=== PATIENT | male | born 1965 | race Caucasian/White ===

== ENCOUNTER 2021-08-01 22:58 | Observation (INO) | payer OTHER ==
[2021-08-01] MEDS ORDERED: MAG HYDROX/AL HYDROX/SIMETH -MYLANTA- ORAL SUSPENSION PO ONE ×2 (23:45→23:53)
[2021-08-01] MEDS ORDERED: FAMOTIDINE 20 MG TABLET PO ONE (23:45)
[2021-08-01] MEDS ORDERED: ACETAMINOPHEN 325 MG TABLET (FP) PO ONE (23:46)
[2021-08-01] MEDS ORDERED: morphine CARPU-JECT 2 MG/1 ML DISP.SYRIN IVPUSH ONE (23:53)
[2021-08-01] MEDS ORDERED: FAMOTIDINE 20 MG/50 ML IVPB 20 MG/50 ML MG IVPB ONE (23:53)
[2021-08-01] MEDS ORDERED: ACETAMINOPHEN 1000 MG/100 ML BAG IVPB ONE (23:57)
[2021-08-02] MEDS ORDERED: MAG HYDROX/AL HYDROX/SIMETH 30 ML UNIT-DOSE CUP ONE (00:10)
[2021-08-02] MEDS ORDERED: ACETAMINOPHEN INJECTION 100 ML IVPB ONE (00:10)
[2021-08-02] MEDS ORDERED: FAMOTIDINE 20 MG/50 ML IVPB 20 MG/50 ML MG IVPB ONE (00:11)
[2021-08-02 00:29] LABS: BASO % 0.4 % (0-2.0); EOS % 2.4 % (0-4.5); HEMATOCRIT 38.5 % (35.4-49); HEMOGLOBIN 13.3 GM/dL (11.7-16.9); LYMPH % 34.7 % (8-40); MCH 32.2 pg (25.7-33.7); MCHC 34.5 g/dl (32.0-35.9); MEAN CELL VOLUME 93.3 fl (80-96); MEAN PLT VOLUME 9.1 fl (7.5-11.1); MONO % 9.9 % (3.8-10.2); NEUT % 52.6 % (42.8-82.8); PLATELET COUNT 157 10^3/uL (134-434); RBC 4.13 M/mm3 (4.00-5.60); RDW 12.7 % (11.9-15.9); WHITE BLOOD COUNT 7.1 K/mm3 (4.0-10.0)
[2021-08-02 00:38] LABS: INR 1.1 (0.83-1.09); PROTHROMBIN TIME (PATIENT) 12.7 SEC (9.7-13.0)
[2021-08-02 00:41] LABS: ACTIVATED PTT 31.6 SECONDS (25.2-36.5)
[2021-08-02 00:45] LABS: ALBUMIN 3.8 g/dl (3.4-5.0); CALCIUM 8.5 mg/dL (8.5-10.1)
[2021-08-02 00:48] LABS: CREATININE 1.4 mg/dL (0.55-1.3)
[2021-08-02 00:50] LABS: BILIRUBIN,TOTAL 0.9 mg/dL (0.2-1); TOT PROT 7.4 g/dl (6.4-8.2)
[2021-08-02] MEDS ORDERED: LACTATED RINGERS SOLUTION 1,000 ML/1,000 ML INFUS.BAG IV STA (00:52)
[2021-08-02] MEDS ORDERED: ONDANSETRON 4 MG/2 ML VIAL IVPUSH ONE (00:55)
[2021-08-02] MEDS ORDERED: morphine CARPU-JECT 4 MG/1 ML DISP.SYRIN IVPUSH ONE ×2 (00:55→05:18)
[2021-08-02] MEDS ORDERED: morphine SULFATE 4 MG/ML VIAL ONE ×2 (00:56→05:20)
[2021-08-02] MEDS ORDERED: ONDANSETRON 4 MG/2 ML VIAL ONE (00:56)
[2021-08-02] MEDS ORDERED: HYDROCHLOROTHIAZIDE 25 MG TABLET (FP) PO ONE (04:41)
[2021-08-02] MEDS ORDERED: ACETAMINOPHEN 1000 MG/100 ML BAG IVPB ONE (04:48)
[2021-08-02] MEDS ORDERED: HYDROCHLOROTHIAZIDE 25 MG TABLET (FP) ONE (04:48)
[2021-08-02] MEDS ORDERED: ACETAMINOPHEN 1000 MG/100 ML BAG IVPB PRN (05:19)
[2021-08-02 08:44] LABS: URINE APPEARANCE CLEAR; URINE BILIRUBIN NEGATIVE (NEGATIVE); URINE COLOR YELLOW; URINE GLUCOSE (UA) NEGATIVE (NEGATIVE); URINE KETONE NEGATIVE (NEGATIVE); URINE LEUK ESTERASE NEGATIVE (NEGATIVE); URINE NITRITE NEGATIVE (NEGATIVE); URINE PROTEIN NEGATIVE (NEGATIVE); URINE UROBILINOGEN 0.2 mg/dL (0.2-1.0)
[2021-08-02 09:12] LABS: BASO % 0.5 % (0-2.0); HEMATOCRIT 39.3 % (35.4-49); HEMOGLOBIN 13.2 GM/dL (11.7-16.9); LYMPH % 36.9 % (8-40); MCH 31.7 pg (25.7-33.7); MCHC 33.5 g/dl (32.0-35.9); MEAN CELL VOLUME 94.7 fl (80-96); MEAN PLT VOLUME 9.4 fl (7.5-11.1); MONO % 10.7 % (3.8-10.2); NEUT % 49.9 % (42.8-82.8); PLATELET COUNT 161 10^3/uL (134-434); RBC 4.15 M/mm3 (4.00-5.60); RDW 12.8 % (11.9-15.9)
[2021-08-02] MEDS ORDERED: ENOXAPARIN NA (PORCINE) 40 MG/0.4 ML DISP.SYRIN SQ SCH (10:00)
[2021-08-02 10:26] VITALS: BMI 35.3
[2021-08-02] MEDS ORDERED: PROPOFOL 20 ML ONE ×2 (10:41)
[2021-08-02] MEDS ORDERED: SUCCINYLCHOLINE CHLORIDE 200 MG/10 ML SYRINGE ONE (10:41)
[2021-08-02] MEDS ORDERED: MIDAZOLAM HCL 2 MG/2 ML SINGLE DOSE VIAL ONE (10:58)
[2021-08-02] MEDS ORDERED: PHENYLEPHRINE HCL 10 MG/1 ML SINGLE DOSE VIAL ONE (10:59)
[2021-08-02] MEDS ORDERED: ceFAZolin SODIUM 1 GM VIAL IVPB ONE (11:15)
[2021-08-02] MEDS ORDERED: ceFAZolin SODIUM 1 GM VIAL ONE (11:16)
[2021-08-02] MEDS ORDERED: HYDROmorphone HCl 2 MG/ML VIAL ONE (11:23)
[2021-08-02 11:34] LABS: CALCIUM 8.8 mg/dL (8.5-10.1)
[2021-08-02 11:35] LABS: BLOOD UREA NITROGEN 14.4 mg/dL (7-18); MAGNESIUM 2.2 mg/dL (1.8-2.4)
[2021-08-02 11:39] LABS: CREATININE 1.2 mg/dL (0.55-1.3); PHOSPHOROUS 2.8 mg/dL (2.5-4.9)
[2021-08-02] MEDS ORDERED: BUPIVACAINE HCL/PF 0.5% (5MG/ML) 10 ML VIAL IJ ONE (12:45)
[2021-08-02] MEDS ORDERED: NEOSTIGMINE METHYLSULFATE 0.5 MG/ML - 10 ML MDV ONE (12:56)
[2021-08-02] MEDS ORDERED: GLYCOPYRROLATE 0.2 MG/1 ML VIAL ONE (13:20)
[2021-08-02] MEDS ORDERED: FAMOTIDINE 10 MG TABLET PO PRN (13:32)
[2021-08-02] MEDS ORDERED: LACTATED RINGERS SOLUTION 1,000 ML IV SCH (13:45)
[2021-08-02] MEDS: ACETAMINOPHEN 1000 MG/100 ML BAG IVPB PRN ×2 (18:14→22:14)
[2021-08-02] MEDS ORDERED: LISINOPRIL 5 MG TABLET PO SCH ×2 (20:00)
[2021-08-02] MEDS ORDERED: LISINOPRIL 20 MG TABLET PO SCH ×2 (22:00)
[2021-08-03] MEDS ORDERED: oxyCODONE HCL 5 MG TABLET PO PRN
[2021-08-03] MEDS: oxyCODONE HCL 5 MG TABLET PO PRN ×2 (06:47→11:57)
[2021-08-03 09:18] LABS: BASO % 0.1 % (0-2.0); HEMATOCRIT 36.9 % (35.4-49); HEMOGLOBIN 12.8 GM/dL (11.7-16.9); LYMPH % 10.7 % (8-40); MCH 32.2 pg (25.7-33.7); MCHC 34.8 g/dl (32.0-35.9); MEAN CELL VOLUME 92.7 fl (80-96); MEAN PLT VOLUME 9.3 fl (7.5-11.1); MONO % 7.1 % (3.8-10.2); NEUT % 82.1 % (42.8-82.8); PLATELET COUNT 156 10^3/uL (134-434); RBC 3.98 M/mm3 (4.00-5.60); RDW 12.8 % (11.9-15.9); WHITE BLOOD COUNT 8.5 K/mm3 (4.0-10.0)
[2021-08-03 09:54] LABS: ALBUMIN 3.2 g/dl (3.4-5.0); BLOOD UREA NITROGEN 12.5 mg/dL (7-18)
[2021-08-03 09:57] LABS: CREATININE 1.2 mg/dL (0.55-1.3)
[2021-08-03 09:59] LABS: BILIRUBIN,TOTAL 1.4 mg/dL (0.2-1)
[2021-08-03] MEDS ORDERED: ENOXAPARIN NA (PORCINE) 40 MG/0.4 ML DISP.SYRIN SQ SCH (10:00)
[2021-08-03] MEDS ORDERED: HYDROCHLOROTHIAZIDE 12.5 MG CAPSULE (FP) PO SCH ×2 (10:00)
[2021-08-03 10:01] LABS: TOT PROT 6.8 g/dl (6.4-8.2)
[2021-08-03 14:56] VITALS: BP 131/70; PULSE 59; TEMP 98
== END 2021-08-03 15:04 | disposition home or self-care (01) ==
LOC: JER 22:58 → JERBED 08-02 02:34 → J8W 08-02 06:17
PROVIDERS: ADMIT Internal Medicine; ATTEND Internal Medicine
PROC: 3E033NZ Introduction of Analgesics, Hypnotics, Sedatives into Peripheral Vein, Percutaneous Approach (ICD-10-PCS; 2021-08-02)
PROC: 3E023GC Introduction of Other Therapeutic Substance into Muscle, Percutaneous Approach (ICD-10-PCS; 2021-08-02)
PROC: 3E033GC Introduction of Other Therapeutic Substance into Peripheral Vein, Percutaneous Approach (ICD-10-PCS; 2021-08-02)
PROC: 3E0337Z Introduction of Electrolytic and Water Balance Substance into Peripheral Vein, Percutaneous Approach (ICD-10-PCS; 2021-08-02)
PROC: 0FT44ZZ Resection of Gallbladder, Percutaneous Endoscopic Approach (ICD-10-PCS; 2021-08-02)
PROC: 0WUF4JZ Supplement Abdominal Wall with Synthetic Substitute, Percutaneous Endoscopic Approach (ICD-10-PCS; 2021-08-02)
PROC: 0FT44ZZ Resection of Gallbladder, Percutaneous Endoscopic Approach (ICD-10-PCS; 2021-08-02)
PROC: BF12YZZ Fluoroscopy of Gallbladder using Other Contrast (ICD-10-PCS; 2021-08-02)
PROC: 0FT44ZZ Resection of Gallbladder, Percutaneous Endoscopic Approach (ICD-10-PCS; principal; 2021-08-02 10:00)
DX: K80.10 Calculus of gallbladder with chronic cholecystitis without obstruction (principal); I10 Essential (primary) hypertension; R10.30 Lower abdominal pain, unspecified; R73.03 Prediabetes; E66.9 Obesity, unspecified; Z68.35 Body mass index [BMI] 35.0-35.9, adult; Z29.9 Encounter for prophylactic measures, unspecified
CPT/HCPCS: 36415; 74174-TC; 76000-TC-FY; 76705-TC; 80048; 80053; 81003; 82550; 82553; 82570; 83036; 83605; 83690; 83735; 84100; 84156; 84484; 84540; 85025; 85610; 85730; 87086; 88304-TC; 93005; 93010; 94760; 96361; 96365; 96372; 96375; 96376; 99285-25; C9803-CS; G0378; U0003; U0005

== ENCOUNTER 2021-09-01 22:37 | Emergency (ER) | payer OTHER ==
[2021-09-01 22:44] VITALS: BP 142/75; PULSE 92; TEMP 98.6; BMI 27.3
[2021-09-01] MEDS ORDERED: ACETAMINOPHEN 500 MG TABLET (FP) PO ONE (23:14)
[2021-09-01] MEDS ORDERED: CEPHALEXIN MONOHYDRATE 500 MG CAPSULE (UD) PO ONE (23:21)
[2021-09-01] MEDS ORDERED: ACETAMINOPHEN 325 MG TABLET (FP) ONE (23:49)
[2021-09-01] MEDS ORDERED: CEPHALEXIN MONOHYDRATE 500 MG CAPSULE (UD) ONE (23:49)
== END 2021-09-02 00:08 | disposition home or self-care (01) ==
LOC: JER 22:37
DX: L03.115 Cellulitis of right lower limb (principal)
CPT/HCPCS: 73630-TC-RT-FY; 99283-25

== ENCOUNTER 2022-02-01 10:58 | Emergency (ER) | payer OTHER ==
[2022-02-01 11:14] VITALS: BP 124/94; PULSE 62; RESP 17; TEMP 97.9; BMI 26.6
[2022-02-01] MEDS ORDERED: KETOROLAC TROMETHAMINE 30 MG/1 ML VIAL IM ONE (11:47)
[2022-02-01] MEDS ORDERED: METHOCARBAMOL 500 MG TABLET PO ONE (11:47)
[2022-02-01] MEDS ORDERED: KETOROLAC TROMETHAMINE 30 MG/1 ML VIAL ONE (11:48)
[2022-02-01] MEDS ORDERED: METHOCARBAMOL 500 MG TABLET ONE (11:48)
== END 2022-02-01 12:04 | disposition home or self-care (01) ==
LOC: JERFT 10:58
PROC: 3E0233Z Introduction of Anti-inflammatory into Muscle, Percutaneous Approach (ICD-10-PCS; principal; 2022-02-01)
DX: M54.41 Lumbago with sciatica, right side (principal)
CPT/HCPCS: 99284-25

== ENCOUNTER 2022-02-05 07:39 | Emergency (ER) | payer OTHER ==
[2022-02-05 08:05] VITALS: TEMP 97.9; BMI 27.4
[2022-02-05] MEDS ORDERED: ACETAMINOPHEN 1000 MG/100 ML BAG IVPB ONE (08:19)
[2022-02-05] MEDS ORDERED: ACETAMINOPHEN INJECTION 100 ML IVPB ONE (08:25)
[2022-02-05] MEDS ORDERED: KETOROLAC TROMETHAMINE 15 MG/ML VIAL IVPUSH ONE ×2 (08:51→12:50)
[2022-02-05 08:54] VITALS: BP 148/87; PULSE 52; RESP 14
[2022-02-05] MEDS ORDERED: KETOROLAC TROMETHAMINE 15 MG/ML VIAL ONE ×2 (08:54→12:58)
[2022-02-05 09:16] LABS: BASO % 0.3 % (0-2.0); EOS % 2.7 % (0-4.5); HEMATOCRIT 41.2 % (35.4-49); HEMOGLOBIN 13.9 GM/dL (11.7-16.9); LYMPH % 26.5 % (8-40); MCH 31.2 pg (25.7-33.7); MCHC 33.7 g/dl (32.0-35.9); MEAN CELL VOLUME 92.8 fl (80-96); MEAN PLT VOLUME 9.5 fl (7.5-11.1); MONO % 10.3 % (3.8-10.2); NEUT % 60.2 % (42.8-82.8); PLATELET COUNT 142 10^3/uL (134-434); RBC 4.44 M/mm3 (4.00-5.60); RDW 12.8 % (11.9-15.9); WHITE BLOOD COUNT 6.3 K/mm3 (4.0-10.0)
[2022-02-05 09:36] LABS: CALCIUM 9.2 mg/dL (8.5-10.1)
[2022-02-05 09:37] LABS: ALBUMIN 4.1 g/dl (3.4-5.0); BLOOD UREA NITROGEN 21.5 mg/dL (7-18)
[2022-02-05 09:40] LABS: CREATININE 1.2 mg/dL (0.55-1.3)
[2022-02-05 09:41] LABS: BILIRUBIN,TOTAL 1.6 mg/dL (0.2-1); TOT PROT 7.3 g/dl (6.4-8.2)
[2022-02-05 10:06] LABS: URINE APPEARANCE CLEAR; URINE BILIRUBIN NEGATIVE (NEGATIVE); URINE COLOR YELLOW; URINE GLUCOSE (UA) NEGATIVE (NEGATIVE); URINE KETONE NEGATIVE (NEGATIVE); URINE LEUK ESTERASE NEGATIVE (NEGATIVE); URINE NITRITE NEGATIVE (NEGATIVE); URINE PROTEIN NEGATIVE (NEGATIVE)
[2022-02-05 10:28] LABS: INR 1.1 (0.83-1.09); PROTHROMBIN TIME (PATIENT) 12.7 SEC (9.7-13.0)
[2022-02-05] MEDS ORDERED: METHOCARBAMOL 500 MG TABLET PO ONE (11:53)
[2022-02-05] MEDS ORDERED: METHOCARBAMOL 500 MG TABLET ONE (11:55)
[2022-02-05] MEDS ORDERED: LIDOCAINE 5% TOPICAL PATCH TP ONE (12:27)
[2022-02-05] MEDS ORDERED: LIDOCAINE 5% TOPICAL PATCH ONE (12:30)
[2022-02-05] MEDS ORDERED: LIDOCAINE PATCH REMOVAL MC SCH (22:00)
== END 2022-02-05 12:40 | disposition home or self-care (01) ==
LOC: JER 07:39
PROC: 3E033GC Introduction of Other Therapeutic Substance into Peripheral Vein, Percutaneous Approach (ICD-10-PCS; principal; 2022-02-05)
DX: R10.84 Generalized abdominal pain (principal)
CPT/HCPCS: 36415; 71045-TC-FY; 74177-TC; 76700-TC; 80053; 81003; 83605; 85025; 85610; 85730; 86850; 86900; 86901; 87086; 93005; 93010; 99285-25; Q9967

== ENCOUNTER 2022-03-23 14:50 | Emergency (ER) | payer OTHER ==
[2022-03-23 15:05] VITALS: BP 139/85; PULSE 76; RESP 18; TEMP 98.3; BMI 26.6
[2022-03-23] MEDS ORDERED: predniSONE 20 MG TABLET (UD) PO ONE (15:57)
[2022-03-23] MEDS ORDERED: diphenhydrAMINE HCL 25 MG CAPSULE (FP) PO ONE ×2 (15:57→16:00)
[2022-03-23] MEDS ORDERED: FAMOTIDINE 20 MG TABLET PO ONE (15:57)
[2022-03-23] MEDS ORDERED: FAMOTIDINE 20 MG TABLET ONE (16:01)
[2022-03-23] MEDS ORDERED: predniSONE 20 MG TABLET (UD) ONE (16:01)
[2022-03-23] MEDS ORDERED: KETOROLAC TROMETHAMINE 30 MG/1 ML VIAL IM ONE (16:19)
[2022-03-23] MEDS ORDERED: KETOROLAC TROMETHAMINE 30 MG/1 ML VIAL ONE (16:26)
== END 2022-03-23 17:14 | disposition home or self-care (01) ==
LOC: JERFT 14:50
PROC: 3E0233Z Introduction of Anti-inflammatory into Muscle, Percutaneous Approach (ICD-10-PCS; principal; 2022-03-23)
DX: L50.0 Allergic urticaria (principal); R10.9 Unspecified abdominal pain
CPT/HCPCS: 99284-25

== ENCOUNTER 2022-03-28 10:49 | Emergency (ER) | payer OTHER ==
[2022-03-28 11:09] VITALS: BP 139/90; PULSE 70; RESP 18; TEMP 97.9; BMI 25.8
[2022-03-28] MEDS ORDERED: FAMOTIDINE 10 MG TABLET PO ONE (11:45)
[2022-03-28] MEDS ORDERED: HYDROCORTISONE 0.5% TOPICAL CREAM 30 GM TUBE TP ONE (11:45)
[2022-03-28] MEDS ORDERED: FAMOTIDINE 20 MG TABLET ONE (11:48)
== END 2022-03-28 12:15 | disposition home or self-care (01) ==
LOC: JER 10:49 → JERFT 10:49
DX: R21 Rash and other nonspecific skin eruption (principal)
CPT/HCPCS: 99283-25